=== PATIENT | female | born 1975 | race Caucasian/White ===

== ENCOUNTER 2016-06-12 08:01 | Emergency (ER) | payer MEDICAID ==
[~2016-06-12] VITALS: Ht 152.4 cm; Wt 60.0 kg
[2016-06-12 08:05] VITALS: BP 126/76
[2016-06-12] MEDS ORDERED: KETOROLAC 60MG/2ML VIAL IM ONE (09:30)
== END 2016-06-12 10:26 | disposition home or self-care (01) ==
LOC: ER 08:12
DX: R51 Headache (principal); M54.9 Dorsalgia, unspecified; M25.512 Pain in left shoulder; M25.511 Pain in right shoulder; R42 Dizziness and giddiness; V49.9XXA Car occupant (driver) (passenger) injured in unspecified traffic accident, initial encounter; Y93.89 Activity, other specified; Y92.89 Other specified places as the place of occurrence of the external cause; Y99.8 Other external cause status
CPT/HCPCS: 96372; 99283; J1885